=== PATIENT | male | born 1960 | race Caucasian/White ===

== ENCOUNTER 2019-12-10 09:01 | Outpatient (CLI) | payer BC, SELFPAY ==
--- NOTE | 2019-12-10 09:15 | MR_ITS ---
WS: [id number] MRI BRAIN WITH HIGH-RESOLUTION IMAGING THROUGH THE INTERNAL AUDITORY CANALS WITHOUT AND WITH CONTRAST HISTORY: BILATERAL SENSORINEURAL HEARING LOSS/ BILATERAL TINNITUS COMPARISON: None available. TECHNIQUE: Multiplanar, multisequence imaging is performed through the brain. Additional 3 mm imaging performed in multiple planes through the internal auditory canal. Postcontrast imaging with 17 ml's of Prohance. No acute intracranial hemorrhage, midline shift, edema or mass effect. Mild cerebral atrophy. There are numerous T2 and FLAIR signal foci of increased intensity scattered t hroughout the white matter from chronic ischemic disease. No large territory infarct. Slightly greate r distribution in the RIGHT cerebral hemisphere. Ventricles and extra-axial spaces are normal. No inferior displacement of cerebellar tonsils. Clivus and pituitary gland are normal. Internal and external auditory canals: Unremarkable. Cranial nerves VII and VIII complexes: Unremarkable. No enhancement or mass. Cerebellopontine angles: Normal. Paranasal sinuses: Normal. Mastoid air cells: Small amount of fluid in the LEFT mastoid air cells. Calvarium and scalp: Normal. Visualized [place] and dural venous sinuses demonstrate no abnormality. MR/MR iac's wo/w con* [id number] IMPRESSION: Normal MRI IACs. Mild to moderate microvascular ischemic disease.
[2019-12-10 09:54] LABS: Blood Urea Nitrogen 16 mg/dL (8-23); Glomerular Filtration Rate 98.3 mL/min (90-130)
== END 2019-12-10 09:02 | disposition home or self-care (01) ==
PROVIDERS: Visit Provider Specialist
DX: I25.89 Other forms of chronic ischemic heart disease (principal); H90.3 Sensorineural hearing loss, bilateral; H93.13 Tinnitus, bilateral
CPT/HCPCS: 70553; 82565; 84520; A9579

== ENCOUNTER 2021-01-10 08:57 | Emergency (ER) | payer BC, SELFPAY ==
[2021-01-10 09:05] VITALS: BP 177/73; PULSE 102; RESP 18; TEMP 36.9; O2SAT 97; BMI 25.8
--- NOTE | 2021-01-10 09:21 | XR_ITS ---
WS: [id number] Exam: XR chest 1V portable [id number] Date/Time of Exam: 01/10/2021 9:23 AM Reason For Exam: chest pain No priors. Findings: The lungs are clear and fully expanded. Costophrenic angles are sharp. No infiltrates. Bronchovascula r relief appears normal. Cardiac silhouette is unremarkable. Bony elements are intact. XR/XR chest 1V portable [id number] IMPRESSION: Unremarkable chest radiograph.
--- NOTE | 2021-01-10 09:21 | ECG_ITS ---
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 Measurements Intervals [place] Rate: 108 P: 58 HI: 155 QRS: -22 QRSD: 91 T: 31 QT: 315 QTc: 422 Interpretive Statements SINUS TACHYCARDIA WITH FREQUENT VENTRICULAR PREMATURE COMPLEXES IN A BIGEMINAL PATTERN POSSIBLE LEFT ATRIAL ENLARGEMENT [-0.1mV P WAVE IN V1/V2] BORDERLINE LEFT AXIS DEVIATION [QRS AXIS < -20] MINIMAL ST DEPRESSION [0.025+ mV ST DEPRESSION] No previous ECG available for comparison Electronically Signed On 01-10-2021 22:51:08 CDT by Ruth Krueger M.D. [id number]
[2021-01-10 09:28] VITALS: BP 177/73; PULSE 96; RESP 20; O2SAT 97
[2021-01-10 09:38] LABS: Basophils # 0.1 10^3/uL (0.0-0.1); Basophils % 0.5 %; Eosinophils # 0.2 10^3/uL (0.0-0.8); Eosinophils % 2.2 %; Hematocrit 47.4 % (42.0-52.0); Hemoglobin 16.4 g/dL (11.7-16.6); Lymphocytes % 21.1 %; Mean Corpuscular HGB Conc 34.6 g/dL (30.0-36.0); Mean Corpuscular Volume 92.6 fL (80-94); Monocytes # 0.7 10^3/uL (0.2-0.9); Monocytes % 7.5 %; Neutrophils # 6.47 10^3/uL (1.8-7.7); Neutrophils % 68.3 %; Nucleated Red Blood Cells % 0 %; Platelet Count 256 10^3/cmm (130-400); Red Blood Count 5.12 10^6/uL (4.1-5.3); White Blood Count 9.5 10^3/uL (4.0-10.0)
[2021-01-10 09:44] VITALS: BP 168/91; PULSE 93; RESP 23; O2SAT 97
[2021-01-10 09:54] LABS: Alanine Aminotransferase 6 U/L (0-41); Albumin Level 4.8 g/dL (3.5-5.2); Alkaline Phosphatase 79 IU/L (40-130); Aspartate Amino Transferase 17 U/L (0-40); Blood Urea Nitrogen 11 mg/dL (8-23); Calcium 9.6 mg/dL (8.5-10.5); Carbon Dioxide 26 mmol/L (22-29); Chloride 100 mmol/L (98-107); Globulin 2.1 g/dL (1.3-4.6); Glucose 129 mg/dL (65-115); Osmolality Calculated 287 mOsm/kg (285-295); Sodium 138 mmol/L (136-145); Total Bilirubin 0.5 mg/dL (0.15-1.2); Total Protein 6.9 g/dL (6.6-8.7)
[2021-01-10 09:55] LABS: Troponin(5th) Baseline 18 ng/L (0-15)
[2021-01-10 10:38] VITALS: BP 131/71; PULSE 86; RESP 14; O2SAT 96
--- NOTE | 2021-01-10 10:51 | ED_ITS ---
HPI - Chest Pain General: Chief Complaint: Chest Pain Stated Complaint: Chest Pain/High Bp Time Seen by Provider: 01/10/21 09:04 History of Present Illness: HPI narrative: 60-year-old male presents emergency room with complaints of palpitations. He has had little bit of upper chest discomfort radiating into his neck is not noticed anything that exacerbates it or improves it. He has no known history of coronary artery disease or arrhythmias. Does have some mild hypertension, he is not diabetic he does smoke. MD complaint: chest discomfort Onset (ago): day(s) (5) Timing of current episode: episodic Onset: during rest Pain location: left chest Severity: mild Quality: tightness and heaviness Relieving factors: nothing Exacerbating factors: nothing Associated symptoms: Deny abdominal pain, diaphoresis, dyspnea, fever(s), leg edema, nausea, palpitations, sense of impending doom, syncope, vomiting or other Treatment prior to arrival: none Review of Systems Const: Denies: fever(s) or diaphoresis ENMT: Denies: throat pain, ear or mastoid pain, nasal discharge or nasal congestion Card: Denies: palpitations or syncope Resp: Denies: dyspnea GI: Denies: abdominal pain, nausea or vomiting : Denies: flank pain, dysuria, urinary frequency or urinary urgency Skin/Breast: Denies: rash or pruritus Physical Exam Const: COMMON NORMALS: no acute distress GENERAL APPEARANCE: cooperative and comfortable ORIENTATION/CONSCIOUSNESS: Yes awake, Yes oriented to person, Yes oriented to place and Yes oriented to time HENMT: COMMON NORMALS: normocephalic, atraumatic, hearing grossly normal bilaterally, external ears normal, EAC's normal, TM's normal bilaterally, Normal nasal mucous membranes and turbinates present, moist oral mucous membranes and oropharynx normal HEAD & SCALP: normocephalic and atraumatic NOSE: Normal nasal mucous membranes and turbinates present EXTERNAL EAR: Yes external ears normal EXTERNAL AUDITORY CANAL: EAC's normal TYMPANIC MEMBRANE: TM's normal bilaterally Eye: COMMON NORMALS: Equal, round and reactive pupils present, EOMs intact bilaterally, conjunctivae normal and no scleral icterus CONJUNCTIVA: Yes conjunctivae normal PUPIL: Yes Equal, round and reactive pupils present Neck/C-Spine: COMMON NORMALS: full ROM, no lymphadenopathy, supple and no JVD Lymph: LYMPHATIC: no lymphadenopathy noted and no lymphedema noted Resp: COMMON NORMALS: normal respiratory effort, No retractions, No use of accessory muscles and clear to auscultation bilaterally AUSCULTATION: clear to auscultation bilaterally Cardio: COMMON NORMALS: no JVD, regular rate, regular rhythm and No murmurs present (Cardio) RATE: regular rate RHYTHM: regular rhythm GI: COMMON NORMALS: Soft to palpation and No hepatosplenomegaly present AUSCULTATION: Yes normoactive bowel sounds PALPATION: Yes Soft to palpation, No Tenderness to palpation present (GI), No Guarding due to palpation present (GI) and Yes No hepatosplenomegaly present Extremity: COMMON NORMALS: normal to inspection, capillary refill normal, no clubbing, cyanosis or edema, no calf tenderness and no pedal edema Neuro: SENSORIUM/ORIENTATION: Yes oriented to person, Yes oriented to place and Yes oriented to time Skin: COMMON NORMALS: no rashes or lesions noted GENERAL SKIN EXAM: no rashes or lesions noted Course Vital Signs: Vital signs: Vital Signs Temperature 98.4 F 01/10/21 09:05 Pulse Rate 80 01/10/21 15:03 Respiratory Rate 20 H 01/10/21 15:03 Blood Pressure 152/102 01/10/21 15:03 Pulse Oximetry 97 01/10/21 15:03 MDM - Chest Pain MDM Narrative: Medical decision making narrative: EKG and troponins are unremarkable. We will go and start him on Toprol-XL daily also put him on aspirin. He did have frequent PVCs. His any recurrent symptoms recheck otherwise follow-up with primary care doctor recheck his blood pressure and symptoms within the week return if has problems. Lab Data: Labs: Lab Results 01/10/21 01/10/21 01/10/21 Range/Units 09:15 09:15 09:15 WBC 9.5 (4.0-10.0) 10^3/ uL RBC 5.12 (4.1-5.3) 10^6/u L Hgb 16.4 (11.7-16.6) g/dL Hct 47.4 (42.0-52.0) % MCV 92.6 (80-94) fL MCH 32.0 (28.0-34.0) pg MCHC 34.6 (30.0-36.0) g/dL RDW 12.0 L (12.1-15.1) % Plt Count 256 (130-400) 10^3/c mm MPV 10.0 (7.4-10.4) fL Neut % (Auto) 68.3 % Lymph % (Auto) 21.1 % [place] % (Auto) 7.5 % Eos % (Auto) 2.2 % Baso % (Auto) 0.5 % Neut # (Auto) 6.47 (1.8-7.7) 10^3/u L Lymph # (Auto) 2.0 (0.8-4.8) 10^3/u L [place] # (Auto) 0.7 (0.2-0.9) 10^3/u L Eos # (Auto) 0.2 (0.0-0.8) 10^3/u L Baso # (Auto) 0.1 (0.0-0.1) 10^3/u L Nucleated RBC % (a uto) 0 % Nucleated RBCs # 0.0 /100WBC Sodium 138 (136-145) mmol/L Potassium 4.0 (3.5-5.1) mmol/L Chloride 100 (98-107) mmol/L Carbon Dioxide 26 (22-29) mmol/L Anion Gap 16.0 (5-19) BUN 11 (8-23) mg/dL Creatinine 0.8 (0.7-1.2) mg/dL GFR Calculation 98.0 (90-130) mL/min Glucose 129 H (65-115) mg/dL Calculated Osmolal ity 287 (285-295) mOsm/k g Calcium 9.6 (8.5-10.5) mg/dL Total Bilirubin 0.5 (0.15-1.2) mg/dL AST 17 (0-40) U/L ALT 6 (0-41) U/L Alkaline Phosphata se 79 (40-130) IU/L Troponin T Baselin e 18 H (0-15) ng/L Troponin T 120 Min ambler (0-15) ng/L Delta Troponin T (0-10) ABS# Total Protein 6.9 (6.6-8.7) g/dL Albumin 4.8 (3.5-5.2) g/dL Globulin 2.1 (1.3-4.6) g/dL 01/10/21 Range/Units 11:17 WBC (4.0-10.0) 10^3/ uL RBC (4.1-5.3) 10^6/u L Hgb (11.7-16.6) g/dL Hct (42.0-52.0) % MCV (80-94) fL MCH (28.0-34.0) pg MCHC (30.0-36.0) g/dL RDW (12.1-15.1) % Plt Count (130-400) 10^3/c mm MPV (7.4-10.4) fL Neut % (Auto) % Lymph % (Auto) % [place] % (Auto) % Eos % (Auto) % Baso % (Auto) % Neut # (Auto) (1.8-7.7) 10^3/u L Lymph # (Auto) (0.8-4.8) 10^3/u L [place] # (Auto) (0.2-0.9) 10^3/u L Eos # (Auto) (0.0-0.8) 10^3/u L Baso # (Auto) (0.0-0.1) 10^3/u L Nucleated RBC % (a uto) % Nucleated RBCs # /100WBC Sodium (136-145) mmol/L Potassium (3.5-5.1) mmol/L Chloride (98-107) mmol/L Carbon Dioxide (22-29) mmol/L Anion Gap (5-19) BUN (8-23) mg/dL Creatinine (0.7-1.2) mg/dL GFR Calculation (90-130) mL/min Glucose (65-115) mg/dL Calculated Osmolal ity (285-295) mOsm/k g Calcium (8.5-10.5) mg/dL Total Bilirubin (0.15-1.2) mg/dL AST (0-40) U/L ALT (0-41) U/L Alkaline Phosphata se (40-130) IU/L Troponin T Baselin e (0-15) ng/L Troponin T 120 Min ambler 16.82 H (0-15) ng/L Delta Troponin T -1.18 L (0-10) ABS# Total Protein (6.6-8.7) g/dL Albumin (3.5-5.2) g/dL Globulin (1.3-4.6) g/dL Discharge Plan Discharge Patient Disposition: Home Clinical Impression: Atypical chest pain, Frequent PVCs Condition: Stable Prescriptions: New Toprol XL 25 mg tablet extended release 24 hr 12.5 mg PO DAILY Qty: 15 RF: 0 aspirin 81 mg tablet,delayed release (DR/EC) 81 mg PO DAILY Qty: 30 RF: 0 No Action multivitamin Tablet 1 tab PO DAILY RF: 0 Advil 200 mg Tablet 200 mg PO PRN RF: 0 Discharge Orders: Discharge ED (Routine); Ordered 01/10/21 Ordered By: Jason Valdovinos Referrals: Jossy Palomo APN [Primary Care Provider] - Discharge Diet: Usual diet Discharge Activity: Resume usual activity Patient Instructions: Opioid Safety Activity Restrictions/Additional Instructions: Case management will call to schedule a 48-hour Holter monitor as well as a Lexiscan sestamibi stress test. Coding Level of Care Code ED Meter And Regulator Shop Supervisor for Jelena Fwbernardo Exam Comprehensive
--- NOTE | 2021-01-10 11:21 | ECG_ITS ---
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 Measurements Intervals [place] Rate: 84 P: 26 MN: 160 QRS: -31 QRSD: 83 T: 32 QT: 347 QTc: 411 Interpretive Statements SINUS RHYTHM MARKED LEFT AXIS DEVIATION [QRS AXIS < -30] Compared to ECG 01/10/2021 09:08:38 Sinus tachycardia no longer present Ventricular premature complex(es) no longer present ST (T wave) deviation no longer present Electronically Signed On 01-10-2021 22:57:55 CDT by Ruth Krueger M.D. [id number]
[2021-01-10 11:58] LABS: Troponin 5 2HR 16.82 ng/L (0-15)
[2021-01-10 11:59] LABS: Troponin 5 2HR Delta -1.18 ABS# (0-10)
[2021-01-10 12:22] VITALS: BP 138/94; PULSE 85; RESP 21; O2SAT 96
[2021-01-10 15:03] VITALS: BP 152/102; PULSE 80; RESP 20; O2SAT 97
== END 2021-01-10 14:00 | disposition home or self-care (01) ==
PROVIDERS: Emergency Provider Family Medicine; PCP Nurse Practitioner
DX: R07.89 Other chest pain (principal); I49.3 Ventricular premature depolarization
CPT/HCPCS: 71045; 80053; 84484; 85025; 93005; 99283

== ENCOUNTER 2022-11-10 05:43 | Day surgery (SDC) | payer BC, SELFPAY ==
[2022-11-08 12:21] VITALS: BMI 27.2
[2022-11-10 06:04] VITALS: BP 121/87; PULSE 98; RESP 18; TEMP 36.1; O2SAT 98
[2022-11-10] MEDS: sodium chloride 0.9% 1,000 ML 30 ML IV (06:19)
--- NOTE | 2022-11-10 06:49 | ANES.PREANE2 ---
Pre-Anesthetic Assessment Height/Weight: Height 1.78 m Weight 86.183 kg Temp Pulse Resp BP Pulse Ox O2 Del Method 97 F L 98 18 121/87 98 Room Air 11/10/22 06:04 11/10/22 06:04 11/10/22 06:04 11/10/22 06:04 11/10/22 06:04 11/10/22 06:04 Preop Diagnosis: screening Operation Date: 11/10/22 07:00 Proposed Procedures p Colonoscopy 21425,Z12.11(Not Applicable) - Chuy Cannon DO Familial anesthetic complications: none Was Beta Gloria taken within 24 hours: N/A Was Clonidine taken within 24 hours: N/A Last intake: Intake Last Liquid Date 11/09/22 Last Liquid Time 22:00 Last Solid Date 11/08/22 Last Solid Time 00:00 Social Alcohol () and Tobacco Exam alert and oriented x 3 Airway Submandibular: within normal limits Cervical ROM: within normal limits Mallampati: Class II Dentition: full History/ROS No significant history except as noted Pulmonary None reported CV/HEM Hypertension and Murmur None reported Hepatic None reported GI None reported Metabolic None reported Musc/skel None reported Neuropsych None reported Anesthetic Plan ASA status: 2 Anesthesia: MAC Risk of > 500 ml blood loss (7ml/kg in children): No Medications/Allergies Home Medications Medication Instructions Recorded Confirmed Last Taken Type ibuprofen 200 mg tablet (Advil) 200 mg PO DAILY 01/10/21 11/10/22 11/09/22 History metoprolol succinate 25 mg 12.5 mg PO DAILY #15 tabs 01/10/21 11/10/22 11/09/22 Rx tablet,extended release 24 hr (Toprol XL) multivitamin 1 tab PO DAILY 01/10/21 11/10/22 11/09/22 History Allergies Allergy/AdvReac Type Severity Reaction Status Date / Time No Known Allergies Allergy Verified 11/08/22 12:18 Current Medications Generic Name Dose Route Start Last Admin Trade Name Freq PRN Reason Stop Dose Admin Sodium Chloride 1,000 mls @ 30 mls/hr 11/10/22 06:00 11/10/22 06:19 Sodium Chloride 0.9% IV 11/11/22 05:59 30 mls/hr .Q24H ALVAREZ Administration Data Anesthesia Cardiac Studies: No Data to Display
--- NOTE | 2022-11-10 07:03 | PM.HP ---
Providers/Chief Complaint Primary Care Provider: Trinidad Frank NP Chief Complaint: Need for colon cancer screening History of Present Illness Yoandy Pugh is a 62 year old male here for his first screening colonoscopy. He denies any family history of colon cancer, abdominal pain, nausea, emesis, diarrhea, constipation, hematochezia and/or melena Medications/Allergies Home Medications Medication Instructions Recorded Confirmed Last Taken Type ibuprofen 200 mg tablet (Advil) 200 mg PO DAILY 01/10/21 11/10/22 11/09/22 History metoprolol succinate 25 mg 12.5 mg PO DAILY #15 tabs 01/10/21 11/10/22 11/09/22 Rx tablet,extended release 24 hr (Toprol XL) multivitamin 1 tab PO DAILY 01/10/21 11/10/22 11/09/22 History Allergies Allergy/AdvReac Type Severity Reaction Status Date / Time No Known Allergies Allergy Verified 11/08/22 12:18 Vitals/I&O/Wt Last Vital Signs Temp 97 F L 11/10/22 06:04 Pulse 98 11/10/22 06:04 Resp 18 11/10/22 06:04 BP 121/87 11/10/22 06:04 Pulse Ox 98 11/10/22 06:04 O2 Del Method Room Air 11/10/22 06:04 Weight last 48 hrs Weight 190 lb A&P Assessment and plan (1) Colon cancer screening: Plan Colonoscopy The risks and benefits of the procedure, including bleeding, infection, intestinal perforation requiring surgery, missed lesion were explained to the patient. The patient is understanding of the risks and wishes to proceed. Attestations Medical Necessity Statement*: Home Coding Level of Care Code Acute Code for Chg Fwd Diagnoses Colon cancer screening Z12.11
[2022-11-10 07:29] VITALS: BP 92/61; PULSE 87; RESP 20; TEMP 36.4; O2SAT 92
[2022-11-10 07:37] VITALS: BP 104/54; PULSE 88; RESP 18; O2SAT 99
[2022-11-10 07:46] VITALS: BP 104/69
--- NOTE | 2022-11-10 08:50 | ANE.PACU2 ---
Inpatient post-anesthesia follow up: Airway intact: Yes Vital signs: Temperature 97.5 F Pulse Rate 88 Respiratory Rate 18 Blood Pressure 104/69 Pulse Oximetry 99 Oxygen Delivery Me thod Room Air Oxygen Flow Rate Fraction of Inspir ed Oxygen Hydration adequate: Yes Nausea and vomiting: No Pain level: 1 Mental status: Baseline
== END 2022-11-10 08:05 | disposition home or self-care (01) ==
PROVIDERS: PCP Nurse Practitioner Family; Visit Provider Surgery
PROC: 0DJD8ZZ Inspection of Lower Intestinal Tract, Via Natural or Artificial Opening Endoscopic (ICD-10-PCS; CPT 45378; principal; 2022-11-10 07:00)
DX: K63.5 Polyp of colon (principal); Z12.11 Encounter for screening for malignant neoplasm of colon; I10 Essential (primary) hypertension; R01.1 Cardiac murmur, unspecified; K57.30 Diverticulosis of large intestine without perforation or abscess without bleeding; K64.8 Other hemorrhoids; F17.200 Nicotine dependence, unspecified, uncomplicated
CPT/HCPCS: 45385; 88305; J2704; J7030

== ENCOUNTER 2022-12-07 06:30 | Outpatient (CLI) | payer BC, SELFPAY ==
--- NOTE | 2022-12-07 | ECG_ITS ---
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 Interpretive Statements NAME OF STUDY: LEXISCAN SESTAMIBI STRESS TEST INDICATION: htn, PROCEDURE: At the baseline, the EKG revealed normal sinus rhythm with poor R wave progression. Possible old inferior wall CT. The baseline heart was 71 bpm with a blood pressue of 142/85 mm of Hg Lexiscan was infused over a period of 20 seconds. A total of 0.4 milligrams of Lexiscan was infused. The stress phase was continued for a total of 5 minutes. Heart rate at the end of the stress phase was 91 bpm with a blood pressure 127/71 mm of Hg. The EKG at the peak infusion revealed no significant changes. Sestamibi was injected 20 seconds after the Lexiscan infusion. Heart rate at the end of the recovery phase was 88 bpm with a blood pressure of 130/77 mm of Hg. CONCLUSION: 1. No significant EKG changes with the LexiScan infusion 2. No LexiScan induced chest pain or cardiac arrhythmia 3. Normal blood pressure and heart rate response 4. Sestamibi/sestamibi perfusion scan pending; see separate report. Electronically Signed On 12-08-2022 7:37:42 CDT by Jodi Perez M.D. [id number]
[2022-12-07 06:53] VITALS: BMI 27.2
--- NOTE | 2022-12-07 06:56 | NMCV_ITS ---
NM chino perf SPECT r/s* [id number] Yoandy Pugh Age: 62 Gender: M : 1960 Exam Date: 12/07/2022 07:43 Ordering Phys: Trinidad Frank NP Technologist: MILKA Le Exam Location: [facility] Indications: HYPERTENSION, HEART MURMUR STRESS TEST Please see separate stress test report in [facility] for full findings IMAGE PROTOCOL Rest/Stress 1 Lexiscan Day Radiopharmaceutical Dose (mCi) Administration Site Administered by Rest: Tc-99m 10.8 IV MILKA Wilkerson Sestamibi Stress:Tc-99m 32.7 IV MILKA Wilkerson Sestamibi Rest: 07-Dec-2022 60 Discovery 630 Stress: 07-Dec-2022 30 Discovery 630 0.4mg Lexiscan. Images obtained in supine and prone position. SPECT RESULTS Technical Quality: Excellent Raw Data Analysis: Normal Image Corrections: No attenuation or motion correction applied Summed Stress Score: 6 Summed Rest Score: 3 Summed Difference Score: 3 PERFUSION FINDINGS Moderate area of moderate to severely decreased tracer uptake in the basal and mid inferior wall region with significant reversibility FUNCTIONAL RESULTS (calculated via Gated SPECT) Stress Image LV EF (%): 57 Stress EDV (mL):118 TID: 1.21 Stress ESV (mL):51 FUNCTIONAL FINDINGS: Segmental wall motion analysis revealing no gross wall motion abnormalities IMPRESSIONS 1. Moderate area of moderate to severely decreased tracer uptake in the inferior wall region with significant reversibility suggesting myocardial scarring with ischemia in the distribution of the right coronary artery. 2. Normal LV ejection fraction of 57%. 3. LV wall motion analysis revealing no gross wall motion abnormalities. 4. Mildly dilated LV cavity 5. Elevated transient ischemic dilatation ratio of 1.21 suggesting endocardial ischemia. No similar previous studies are available for comparison Dr Jodi Perez MD [facility] (Electronically Signed) Final Date: 07 Dec 2022 16:07 S
[2022-12-07] MEDS: regadenoson 0.4 Mg/5 ml Syringe IVP (08:25)
[2022-12-07 08:42] VITALS: BP 130/77; PULSE 88
== END 2022-12-07 06:31 | disposition home or self-care (01) ==
PROVIDERS: PCP Nurse Practitioner Family; Visit Provider Nurse Practitioner Family
DX: I10 Essential (primary) hypertension (principal)
CPT/HCPCS: 36415; 78452; 93017; 96374; A9500; J2785

== ENCOUNTER 2022-12-08 06:44 | Outpatient (CLI) | payer BC, SELFPAY ==
--- NOTE | 2022-12-08 | USCV_ITS ---
Yoandy Pugh Age: 62 Gender: M : 1960 Exam Date: 12/08/2022 07:08 Ordering Phys: Trinidad Frank NP Technologist: PHILLIP [place] [facility] [place]: HTN BP: / HR: 78 Rhythm: Sinus Technical Quality: Adequate MEASUREMENTS (Male / Female) Normal Values 2D ECHO LV Diastolic Diameter PLAX 4.5 cm 4.2 - 5.9 / 3.9 - 5.3 cm LV Systolic Diameter PLAX 3.4 cm LV Chamber Size 4.4 cm IVS Diastolic Thickness 1.0 cm 0.6 - 1.0 / 0.6 - 0.9 cm IVS Systolic Thickness 1.5 cm LVPW Diastolic Thickness 1.5 cm 0.6 - 1.0 / 0.6 - 0.9 cm LVPW Systolic Thickness 1.9 cm RV Chamber Size 2.5 cm LVOT Diameter 2.0 cm LV Ejection Fraction 2D Teich 41.6 % LV Ejection Fraction MOD 2C 0.1 % LV Ejection Fraction 2C AL 6.1 % LA Diameter 3.2 cm LA Width 3.7 cm LA Height 3.3 cm RA Width 3.5 cm RA Height 3.8 cm Aorta at Sinotubular Diameter 3.1 cm IVC Diameter 2.0 cm M-MODE Aortic Annulus Diameter 0.1 cm LA Ao Ratio MM 38.3 MV E Point Septal Separation 0.3 cm DOPPLER AV Peak Velocity 211.0 cm/s LVOT Peak Velocity 74.0 cm/s AV Area Cont Eq vti 1.2 cm squared AV Area Cont Eq pk 1.1 cm squared MV Peak Velocity 113.0 cm/s MV Area PHT 4.6 cm squared Mitral E to A Ratio 0.8 MV E' Velocity 48.0 cm/s Mitral E to MV E' Ratio 11.6 Mitral E to LV E' Lateral Ratio 10.0 Mitral E to LV E' Septal Ratio 14.1 TR Peak Velocity 149.7 cm/s TR Peak Gradient 9.0 mmHg TR Mean Velocity 116.6 cm/s TR Mean Gradient 6.2 mmHg TR Velocity Time Integral 36.5 cm TV Peak E Velocity 73.0 cm/s Right Atrial Pressure 3.0 mmHg Pulmonary Artery Systolic Pressu 12.0 mmHg RV Acceleration Time 0.4 s RV Ejection Time 0.1 s RV AcT/ET 2.7 FINDINGS Left Ventricle Normal left ventricular size and systolic function, EF 55%.no regional wall motion abnormalities. Grade I/IV diastolic dysfunction (abnormal relaxation filling pattern), normal to mildly elevated filling pressures. Right Ventricle The right ventricle is normal in size and function. Right Atrium The right atrium is normal in size. Left Atrium The left atrium is normal in size. Mitral Valve Thickened mitral valve. Aortic Valve Thickened aortic valve. Mild to moderate aortic valve stenosis, valve area is calculated to be 1.2 cm squared . Tricuspid Valve Trace tricuspid valve regurgitation. Estimated pulmonary artery peak systolic pressure, possibly within normal limits Pulmonic Valve No gross abnormalities noted Pericardium Normal pericardium without effusion. Aorta Normal ascending aorta dimension. IVC Normal inferior vena caval size CONCLUSIONS Normal left ventricular size and systolic function, EF 55%.no regional wall motion abnormalities. Grade I/IV diastolic dysfunction (abnormal relaxation filling pattern), normal to mildly elevated filling pressures. Thickened aortic valve. Mild to moderate aortic valve stenosis, valve area is calculated to be 1.2 cm squared . Thickened mitral valve. Trace tricuspid valve regurgitation. Estimated pulmonary artery peak systolic pressure, possibly within normal limits. There is no pericardial effusion. Technically somewhat difficult study because of the poor ultrasonic window. Dr Jodi Perez MD FAC (Electronically Signed) Final Date: 10 Dec 2022 13:12 S
== END 2022-12-08 06:45 | disposition home or self-care (01) ==
LOC: RAD 06:50
PROVIDERS: PCP Nurse Practitioner Family; Visit Provider Nurse Practitioner Family
DX: I10 Essential (primary) hypertension (principal); R01.1 Cardiac murmur, unspecified; I05.9 Rheumatic mitral valve disease, unspecified; I07.1 Rheumatic tricuspid insufficiency
CPT/HCPCS: 93306